=== PATIENT | female | born 1995 | race American Indian/Alaskan Native ===

== ENCOUNTER 2017-11-01 10:54 | Emergency (ER) | payer SELFPAY ==
[2017-11-01 11:08] VITALS: O2SAT 98; BMI 35.0
[2017-11-01] MEDS ORDERED: Sodium Chloride 0.9% 1,000 ML IV STA (11:17)
--- NOTE | 2017-11-01 11:20 | ED PDOC ---
Arrival/HPI - General Chief Complaint: GI Problem Time Seen by Provider: 11/01/17 10:57 Historian: Patient - History of Present Illness Narrative History of Present Illness (Text): 11/01/17 11:18 A 21 female, , presents to the emergency department for a complaint of 2 day duration nausea, vomiting, and sore throat. The patient notes that her last menstrual period was 08/03. The patient is a non-smoker/drinker. She denies fevers, chills, headache, dizziness, chest pain, shortness of breath, dyspnea on exertion, cough, rhinorrhea, abdominal pain, diarrhea, back pain, neck pain, urinary/bowel changes, vaginal bleeding/discharge, hematuria, or any other complaint. Time/Duration: Other (2 Days) Symptom Onset: Sudden Symptom Course: Unchanged Activities at Onset: Rest, Light Context: Home Associated Symptoms (Text): 11/01/17 11:50 LMP August 03. 5 para 0. Patient has had intermittent nausea and vomiting with this . She states that it began again 2 days ago. No abdominal pain or diarrhea. No vaginal discharge or bleeding. No genitourinary symptoms. No fever or chills. She also complains of a sore throat. No URI symptoms. She does not appear ill or uncomfortable. Past Medical History - Provider Review Nursing Documentation Reviewed: Yes - Cardiac Hx Cardiac Disorders: No - Pulmonary Hx Respiratory Disorders: No - Neurological Hx Neurological Disorder: No - HEENT Hx HEENT Disorder: No - Renal Hx Renal Disorder: No - Endocrine/Metabolic Hx Endocrine Disorders: No - Hematological/Oncological Hx Blood Disorders: No - Integumentary Hx Dermatological Disorder: No - Musculoskeletal/Rheumatological Hx Musculoskeletal Disorders: No - Gastrointestinal Hx Gastrointestinal Disorders: No - Genitourinary/Gynecological Hx Genitourinary Disorders: No - Psychiatric Hx Psychophysiologic Disorder: No Hx Substance Use: No Family/Social History - Physician Review Nursing Documentation Reviewed: Yes Family/Social History: No Known Family HX Smoking Status: Never Smoked Hx Alcohol Use: No Hx Substance Use: No Allergies/Home Meds Allergies/Adverse Reactions: Allergies No Known Allergies Allergy (Verified 11/01/17 11:05) Home Medications: Home Meds Medication Instructions Recorded Confirmed No Known Home Med 11/01/17 11/01/17 Review of Systems - Physician Review All systems were reviewed & negative as marked: Yes - Review of Systems Constitutional: absent: Fatigue, Fevers, Night Sweats ENT: Sore Throat. absent: Rhinorrhea Respiratory: absent: SOB, Cough Cardiovascular: absent: Chest Pain, PETTY Gastrointestinal: Nausea, Vomiting. absent: Abdominal Pain, Stool Changes, Diarrhea Genitourinary Female: absent: Dysuria, Frequency, Hematuria, Urine Output Changes, Vaginal Bleeding, Vaginal Discharge Musculoskeletal: absent: Back Pain, Neck Pain Neurological: absent: Headache, Dizziness Physical Exam Vital Signs Reviewed: Yes Vital Signs Temp Pulse Resp BP Pulse Ox 11/01/17 11:07 99.2 F 101 H 17 132/76 98 11/01/17 11:05 99.2 F 103 H 17 132/76 98 Temperature: Afebrile Blood Pressure: Normal Pulse: Tachycardic Respiratory Rate: Normal Appearance: Positive for: Well-Appearing, Non-Toxic, Comfortable, Other (Obese) Pain Distress: None Mental Status: Positive for: Alert and Oriented X 3 - Systems Exam Head: Present: Atraumatic, Normocephalic Pupils: Present: PERRL Extroacular Muscles: Present: EOMI Conjunctiva: Present: Normal Ears: Present: NORMAL TM, Normal Canal. No: Erythema Mouth: Present: Moist Mucous Membranes Pharnyx: No: ERYTHEMA, EXUDATE, TONSILS ENLARGED Neck: Present: Normal Range of Motion Respiratory/Chest: Present: Clear to Auscultation, Good Air Exchange. No: Respiratory Distress, Accessory Muscle Use Cardiovascular: Present: Regular Rate and Rhythm, Normal S1, S2. No: Murmurs Abdomen: No: Tenderness, Distention, Peritoneal Signs, Rebound, Guarding Back: Present: Normal Inspection Upper Extremity: Present: Normal Inspection. No: Cyanosis, Edema Lower Extremity: Present: Normal Inspection. No: Edema Neurological: Present: GCS=15, CN II-XII Intact, Speech Normal, Motor Func Grossly Intact Skin: Present: Warm, Dry, Normal Color. No: Rashes Psychiatric: Present: Alert, Oriented x 3, Normal Insight, Normal Concentration Medical Decision Making ED Course and Treatment: 11/01/17 11:21 Impression: A 21 year old female presents to the emergency department for a complaint of nausea, vomiting, and sore throat. Plan: -- Labs -- Urinalysis -- IV Fluids -- Reassess and disposition Progress Notes: 11/01/17 12:19 Rapid strep is negative. Blood and urine testing are unrevealing. Patient will be discharged home to follow up with [facility]. Follow-up in the ER as needed. Symptomatic treatment. Tylenol as directed on bottle as needed. Cepacol or Cepastat as directed on bottle as needed. - Lab Interpretations Lab Results: 11/01/17 11:42 11/01/17 11:42 Lab Results 11/01/17 11:42: Sodium 139, Potassium 3.7, Chloride 104, Carbon Dioxide 23, Anion Gap 16, BUN 7, Creatinine 0.6 L, Est GFR ( Amer) > 60, Est GFR (Non -Af Amer) > 60, Random Glucose 86, Calcium 9.7, Magnesium 1.8, Total Bilirubin 0.2, AST 19, ALT 16, Alkaline Phosphatase 52, Total Protein 7.3, Albumin 4.1, Globulin 3.2, Albumin/Globulin Ratio 1.3 11/01/17 11:42: Urine Color Yellow, Urine Appearance Clear, Urine pH 7.0, Ur Specific [place] 1.020, Urine Protein Trace H, Urine Glucose (UA) Negative, Urine Ketones Negative, Urine Blood Negative, Urine Nitrate Negative, Urine Bilirubin Negative, Urine Urobilinogen 0.2, Ur Leukocyte Esterase Negative, Urine RBC 0 - 2, Urine WBC 0 - 2, Ur Epithelial Cells 0 - 2, Urine Bacteria Trace 11/01/17 11:42: WBC 6.9, RBC 4.05, Hgb 11.8 L, Hct 34.0 L, MCV 84.0, MCH 29.1, MCHC 34.7, RDW 12.4, Plt Count 323, MPV 9.4, Gran % 62.1, Lymph % (Auto) 30.1, [place] % (Auto) 6.6 H, Eos % (Auto) 0.9 L, Baso % (Auto) 0.3, Gran # 4.30, Lymph # (Auto) 2.1, [place] # (Auto) 0.5, Eos # (Auto) 0.1, Baso # (Auto) 0.02 11/01/17 11:42: Grp A Beta Strep Ag Negative I have reviewed the lab results: Yes - Medication Orders Current Medication Orders: Discontinued Medications Sodium Chloride (Sodium Chloride 0.9%) 1,000 mls @ 1,000 mls/hr IV .Q1H STA Stop: 11/01/17 12:16 Last Admin: 11/01/17 11:44 Dose: 1,000 mls/hr eMAR Start Stop Document 11/01/17 11:44 SRE (Rec: 11/01/17 11:44 SRE [id number]) Intravenous Solution Start Date 11/01/17 Start Time 11:20 End Date 11/01/17 End time 12:20 Total Infusion Time 60 - Scribe Statement The provider has reviewed the documentation as recorded by the Cinthiaibcynthia Orta Provider Scribe Attestation: All medical record entries made by the Scribe were at my direction and personally dictated by me. I have reviewed the chart and agree that the record accurately reflects my personal performance of the history, physical exam, medical decision making, and the department course for this patient. I have also personally directed, reviewed, and agree with the discharge instructions and disposition. Disposition/Present on Arrival - Present on Arrival Any Indicators Present on Arrival: No History of DVT/PE: No History of Uncontrolled Diabetes: No Urinary Catheter: No History of Decub. Ulcer: No History Surgical Site Infection Following: None - Disposition Have Diagnosis and Disposition been Completed?: Yes Diagnosis: Hyperemesis gravidarum, Sore throat (viral) Disposition: HOME/ ROUTINE Disposition Time: 12:20 Patient Plan: Discharge Condition: GOOD Discharge Instructions (ExitCare): Viral Pharyngitis, Hyperemesis Gravidarum Additional Instructions: Tylenol as directed on bottle as needed. Cepacol or Cepastat as directed on bottle as needed. Frequent small meals. Follow-up with PMD and [facility]. Follow up in ER as needed. Referrals: Nidia Ramos, [Primary Care Provider] - Follow up with primary Forms: [employer] ([place])
[2017-11-01 11:49] LABS: BASO # 0.02 K/mm3 (0.0-2.0); BASO % 0.3 % (0.0-3.0); EOS # 0.1 (0.0-0.7); EOS % 0.9 % (1.5-5.0); GRAN # 4.3 (1.4-6.5); GRAN % 62.1 % (50.0-68.0); HEMOGLOBIN 11.8 g/dL (12.0-16.0); LYMPH # 2.1 (1.2-3.4); LYMPH % 30.1 % (22.0-35.0); MEAN CORPUSCULAR HEMOGLOBIN 29.1 pg (25.0-35.0); MEAN CORPUSCULAR HGB CONC 34.7 g/dl (31.0-37.0); MEAN PLATELET VOLUME 9.4 fl (7.0-11.0); MONO # 0.5 (0.1-0.6); MONO % 6.6 % (1.0-6.0); RBC 4.05 10^6/uL (3.5-6.1); RED CELL DISTRIBUTION WIDTH 12.4 % (11.5-14.5); WHITE BLOOD COUNT 6.9 10^3/ul (4.5-11.0)
[2017-11-01 11:54] LABS: URINE BILIRUBIN NEGATIVE (NEGATIVE); URINE BLOOD NEGATIVE (NEGATIVE); URINE GLUCOSE (UA) NEGATIVE (NEGATIVE); URINE LEUKOCYTE ESTERASE NEGATIVE Leu/uL (NEGATIVE); URINE PROTEIN TRACE mg/dL (<30 mg/dL); URINE UROBILINOGEN 0.2 E.U./dL (<1 E.U./dL)
[2017-11-01 11:58] LABS: URINE APPEARANCE CLEAR (CLEAR); URINE COLOR YELLOW (YELLOW)
[2017-11-01 12:00] LABS: ALB/GLOB RATIO 1.3 (1.1-1.8); ALBUMIN 4.1 g/dL (3.0-4.8); ALT/SGPT 16 U/L (7-56); AST/SGOT 19 U/L (14-36); BLOOD UREA NITROGEN 7 mg/dL (7-21); CALCIUM 9.7 mg/dL (8.4-10.5); GFR AFRICAN-AMERICAN > 60; GFR NON-AFRICAN AMERICAN > 60
[2017-11-01 12:05] LABS: URINE BACTERIA TRACE (NEG); URINE EPITHELIAL CELLS 0 - 2 /hpf (0-5); URINE RBC 0 - 2 /hpf (0-2); URINE WBC 0 - 2 /hpf (0-6)
[2017-11-01 12:49] VITALS: BP 142/82; PULSE 85; RESP 18; TEMP 98.5
== END 2017-11-01 12:46 | disposition home or self-care (01) ==
LOC: ED 10:54
DX: O21.0 Mild hyperemesis gravidarum (principal); J02.8 Acute pharyngitis due to other specified organisms; Z3A.00 Weeks of gestation of pregnancy not specified
CPT/HCPCS: 80053; 81001; 83735; 85025; 87070; 87430; 96360; 99284; J7030